=== PATIENT | female | born 1980 | race African-American/Black ===

== ENCOUNTER 2023-01-06 08:40 | Emergency (ER) | payer MEDICAID, SELFPAY ==
--- NOTE | ~2023-01-06 | XR_ITS ---
XR finger 5th RT min 2V 01/06/2023 09:18 INDICATION: Right fifth finger pain PROCEDURE: 4 views right fifth finger COMPARISON: No prior studies for comparison. FINDINGS: Fracture, dislocation or subluxation is not identified. There is fixed flexion at the fifth distal interphalangeal joint. The soft tissues appear within normal limits. No foreign bodies are i dentified. IMPRESSION: 1: No acute fracture. 2: Fixed flexion at the fifth distal interphalangeal joint. Reviewed, dictated and finalized at location A. ATION AND TRAINING COORDINATOR
[2023-01-06 08:51] VITALS: BP 153/87; PULSE 76; RESP 15; TEMP 37.1; O2SAT 100
--- NOTE | 2023-01-06 09:31 | ED.UPPEXIN ---
HPI - Extremity Injury (Upper) General Chief Complaint: Extremity Injury, Upper Stated Complaint: finger injury Time Seen by Provider: 01/06/23 09:01 Source: patient Mode of arrival: ambulatory Limitations: no limitations History of Present Illness HPI narrative: Patient is a 42-year-old female who presents the ED with report of pain to her right fifth digit. Patient reports she was carrying groceries last night and thinks she injured her finger. She states she is unable to fully straighten/flex her fifth digit at the distal end. Denies any known injury or feeling like she jammed her finger. No numbness, tingling. Related Data Allergies Allergy/AdvReac Type Severity Reaction Status Date / Time No Known Allergies Allergy Verified 01/06/23 09:07 Review of Systems Review of Systems: CONSTITUTIONAL: Denies fever, chills, or sweats. MUSCULOSKELETAL: See HPI. NEUROLOGIC: Denies tingling, numbness, or weakness. All systems reviewed & are unremarkable except as noted in HPI and below PMFSH Past Medical History Medical History (Updated 01/06/23 @ 09:40 by Gabby Garcia PA-C) No pertinent past medical history Surgical History Surgical History (Updated 01/06/23 @ 09:34 by Gabby Garcia PA-C) No pertinent past surgical history Social History Social History (Updated 01/06/23 @ 09:34 by Gabby Garcia PA-C) Smoking status: Never smoker Exam Narrative: GENERAL: Well appearing, morbidly obese, non-toxic, in no acute distress. HEAD: Normocephalic, atraumatic. NECK: Supple. No adenopathy, no masses. RESPIRATORY: Airway patent, respirations nonlabored. CARDIOVASCULAR: Regular rate and rhythm without murmurs, rubs, or gallops. Radial pulses 2+ and equal bilaterally. MUSCULOSKELETAL: Fixed flexion at DIP joint of right fifth digit. Unable to extend. Mild tenderness over DIP joint, no significant tenderness over PIP joint of that finger. Range of motion of other fingers intact. SKIN: Warm, dry, normal color. No rashes. NEURO: A&O X3. Speech clear. Cranial nerves II-XII grossly intact. Steady gait. No ataxic movements. PSYCHIATRIC: Appropriate mood and affect. Normal interaction. Course Vital Signs Vital signs: Vital Signs Temperature 98.7 F 01/06/23 08:51 Pulse Rate 76 01/06/23 08:51 Respiratory Rate 15 01/06/23 08:51 Blood Pressure 153/87 H 01/06/23 08:51 Pulse Oximetry 100 01/06/23 08:51 Oxygen Delivery Room Air 01/06/23 08:51 Temperature 98.7 F 01/06/23 08:51 Pulse Rate 76 01/06/23 08:51 Respiratory Rate 15 01/06/23 08:51 Blood Pressure 153/87 H 01/06/23 08:51 Pulse Oximetry 100 01/06/23 08:51 Oxygen Delivery Room Air 01/06/23 08:51 MDM - Extremity Injury (Upper) MDM Narrative Medical decision making narrative: Exam consistent with mallet finger injury of right fifth digit. X-ray confirming fixed flexion of DIP joint. No fracture or dislocation identified. Patient placed in a metal finger splint. Discussed importance of wearing splint at all times. Also discussed less burdensome [id number] mallet finger splinting. Will be given hand surgery information for follow-up. Given reasons to return. Medical Records Attestation: I reviewed the patient's medical records. Imaging Data Attestation: I personally reviewed and interpreted this imaging study as follows: Radiologist's impression: ITS Impressions Finger X-Ray 01/06/23 09:21 IMPRESSION: 1: No acute fracture. 2: Fixed flexion at the fifth distal interphalangeal joint. Discharge Plan Discharge Clinical Impression: Mallet deformity of right little finger Patient Disposition: Home, Self-Care Condition: Stable Instructions: Antibiotic Form, Jammed Finger (ED), Finger Sprain (ED) Additional Instructions: Wear splint at all times. You may look into [id number] mallet finger splints which may be more slim/comfortable. Follow-up with hand surg
--- NOTE | 2023-01-29 10:37 | PC.NURSE ---
LATE ENTRY This note is being entered to document information to the patient's record. The following information was omitted on [01/06/23], by [[place] CLAROS]. AMARJIT Apply aluminum finger splint to right 5th digit
== END 2023-01-06 09:52 | disposition home or self-care (01) ==
PROVIDERS: Emergency Provider Physician Assistant
DX: M20.011 Mallet finger of right finger(s) (principal)
CPT/HCPCS: 29130; 73140; 99283